=== PATIENT | male | born 1965 | race Caucasian/White ===

== ENCOUNTER 2018-11-07 21:17 | Emergency (ER) | payer BC ==
[~2018-11-07] VITALS: Ht 172.7 cm; Wt 74.8 kg
[2018-11-07] MEDS ORDERED: LIPIT PO (21:28)
[2018-11-07] MEDS ORDERED: IV NORMAL SALINE 1000 ML BAG IV ONE (21:30)
[2018-11-07 21:44] LABS: BASOPHILS # (AUTO) 0.1 K/uL (0.0-8.0); BASOPHILS % (AUTO) 0.7 % (0.0-2.0); EOSINOPHILS # (AUTO) 0.2 K/uL (0.0-0.7); EOSINOPHILS % (AUTO) 2.5 % (0.0-7.0); HEMATOCRIT 39.8 % (36.7-47.1); HEMOGLOBIN 13.5 g/dL (12.5-16.3); LYMPHOCYTES # (AUTO) 3.1 K/uL (20.0-40.0); LYMPHOCYTES % (AUTO) 36.7 % (20.5-51.5); MEAN CORPUSCULAR HEMOGLOBIN 27.5 uug (23.8-33.4); MEAN CORPUSCULAR HGB CONC 34 g/dL (32.5-36.3); MEAN CORPUSCULAR VOLUME 81.4 fL (73.0-96.2); MONOCYTES # (AUTO) 0.6 K/uL (2.0-10.0); MONOCYTES % (AUTO) 7.2 % (0.0-11.0); NEUTROPHILS # (AUTO) 4.4 K/uL (1.8-8.9); NEUTROPHILS % (AUTO) 52.9 % (38.5-71.5); PLATELET COUNT (AUTO) 272 K/uL (152-348); RED BLOOD CELL COUNT(AUTO) 4.89 MIL/uL (4.06-5.63); WHITE BLOOD COUNT (AUTO) 8.4 K/uL (3.6-10.2)
[2018-11-07 21:48] LABS: CREATININE 0.9 mg/dL (0.6-1.3); POTASSIUM 3.6 mmol/L (3.5-5.1)
[2018-11-07 21:54] LABS: BILIRUBIN,DIRECT 0.1 mg/dL (0.0-0.2); BILIRUBIN,TOTAL 0.4 mg/dL (0.2-1.0); TOTAL PROTEIN, SERUM 6.6 g/dL (6.4-8.2)
[2018-11-07] MEDS ORDERED: SWABABLE VALVE TRANSFER SET EA MC ONE (23:07)
[2018-11-07] MEDS ORDERED: IV NORMAL SALINE 250 ML IV ONE (23:08)
[2018-11-07] MEDS ORDERED: IOHEXOL 300MG/ML 100 ML INFUS..BTL ONE (23:08)
--- NOTE | 2018-11-07 23:16 | NUR ---
Pt went down to radiology dept for CT Abdomen with IV contrast. Consent for contrast signed by pt.
--- NOTE | 2018-11-07 23:43 | NUR ---
Pt back from CT scan to room 02A. Pt walked to restroom with steady gait.
--- NOTE | 2018-11-08 00:03 | NUR ---
Patient discharged to home in stable conditon. Written and verbal after care instructions given. Patient verbalizes understanding of instructions. Pt walked out of ER in stable gait with who will take pt home. Pt states he feels better. Vital signs stable. Respirations even + unlabored. Denies any pain at this time.
--- NOTE | 2018-11-08 00:03 | NUR ---
IV removed. Catheter intact and site benign. Pressure and 4x4 gauze applied to site. No bleeding noted.
[2018-11-08 00:07] VITALS: BP 114/71
== END 2018-11-08 00:08 | disposition home or self-care (01) ==
LOC: ER 21:17
DX: R10.9 Unspecified abdominal pain (principal); R55 Syncope and collapse; R11.10 Vomiting, unspecified; R19.7 Diarrhea, unspecified; E78.5 Hyperlipidemia, unspecified; F12.10 Cannabis abuse, uncomplicated; Z79.899 Other long term (current) drug therapy
CPT/HCPCS: 36415; 71045; 74177; 80048; 80076; 83690; 84484; 85025; 93005; 96360; 99284; Q9967; 70030-TC; A4663; J7040; J7050